=== PATIENT | female | born 1955 | race Caucasian/White ===

== ENCOUNTER → 2020-02-14 13:52 | Outpatient (CLI) | payer BC, SELFPAY ==
--- NOTE | ~2020-02-14 | MM_ITS ---
EXAMINATION: MM screening ruma BI w ulises HISTORY: Screening TECHNIQUE: Craniocaudal and mediolateral oblique 3-D tomosynthesis images were obtained and synthetic 2-D images were generated. CAD analysis was submitted and interpreted. COMPARISON: No prior mammogram is available for comparison at this institution. BREAST PARENCHYMAL COMPOSITION: There are scattered areas of fibroglandular density. FINDINGS: There is no evidence of suspicious mass, calcification, or architectural distortion to sugg est malignancy in either breast. There has been no suspicious interval change. IMPRESSION: 1. No mammographic evidence of malignancy. 2. Recommend routine screening mammography in one year. BI-RADS Category 1: Negative Reviewed, dictated and finalized at location A.
== END ==
PROVIDERS: PCP Family Medicine Adolescent Medicine; Visit Provider Family Medicine Adolescent Medicine
DX: Z12.31 Encounter for screening mammogram for malignant neoplasm of breast (principal)
CPT/HCPCS: 77063; 77067

== ENCOUNTER 2020-09-25 15:08 | Outpatient (CLI) | payer BC, SELFPAY ==
--- NOTE | ~2020-09-25 | CT_ITS ---
EXAMINATION: CT abdomen pelvis wo con DATE: 09/25/2020 15:27 INDICATION: Right lower quadrant abdominal pain, costovertebral angle tenderness. For 3 days TECHNIQUE: Computed tomography (CT) of the abdomen and pelvis was performed without intravenous contr ast. Automated exposure control and iterative reconstruction technique were employed. Exam dose: 304 .19 mGy-cm total exam DLP. COMPARISON: None. FINDINGS: There is patchy infiltrate and/or atelectasis in the lingula and right lower lobe and to l nain extent middle and left lower lobes. Right lower lobe calcified pulmonary granulomas. Heart size is within normal limits. No pericardial or pleural effusion. Small sliding hiatal hernia. The gallbladder is contracted. No pericholecystic fluid or fat stranding. No hepatic space-occupying mass lesion or bile duct dilatation. Normal splenic size. No pancreatic mass lesion, calcification or ductal dilatation. Normal morphology of the adrenal glands. No urinary tract calculus or hydroureteronephrosis is evident. The urinary bladder is evacuated and n ot optimally evaluated. The uterus and adnexal areas are unremarkable. There is atherosclerotic calcification of the abdominal aorta but no aneurysm. No intraperitoneal or retroperitoneal or pelvic mass lesion or adenopathy or ascites is evident. Normal appendix. Diverticulosis of left and right colon. No CT evidence of diverticulitis. No bowel o bstruction, bowel wall thickening, pneumatosis or intraperitoneal free air is evident. Degenerative changes of the lumbar spine, including degenerative disc disease especially L4-5 and L5- S1, grade 1 anterolisthesis at L4-5 due to degenerative change at the apophyseal joints. IMPRESSION: Normal appendix No urinary tract calculus or hydroureteronephrosis Diverticulosis of the colon; no evidence of diverticulitis Reviewed, dictated and finalized at [facility]. Reviewed, dictated and finalized at location [facility].
== END 2020-09-25 15:09 | disposition home or self-care (01) ==
PROVIDERS: PCP Family Medicine Adolescent Medicine; Visit Provider Physician Assistant
DX: R10.32 Left lower quadrant pain (principal); R10.823 Right lower quadrant rebound abdominal tenderness; K57.90 Diverticulosis of intestine, part unspecified, without perforation or abscess without bleeding
CPT/HCPCS: 74176

== ENCOUNTER → 2021-08-14 10:03 | Outpatient (CLI) | payer OTHER, SELFPAY ==
--- NOTE | ~2021-08-14 | XR_ITS ---
EXAMINATION: XR chest 2V DATE: 08/14/2021 10:28 INDICATION: Shortness of breath. TECHNIQUE: Frontal and lateral views of the chest were obtained. COMPARISON: Chest 2 views 03/21/2017, CT abdomen and pelvis 09/25/2020 FINDINGS: A calcified left lung nodule is consistent with old granulomatous disease. No pleural effus ion or pneumothorax. The heart size is normal. IMPRESSION: 1. No acute cardiopulmonary disease. Reviewed, dictated and finalized at location A.
== END ==
PROVIDERS: PCP Family Medicine Adolescent Medicine; Visit Provider Physician Assistant
DX: R06.02 Shortness of breath (principal)
CPT/HCPCS: 71046

== ENCOUNTER 2021-09-09 09:58 | Outpatient (CLI) | payer MEDICARE, SELFPAY ==
--- NOTE | 2021-09-09 12:26 | WPDPFTINT ---
PFT Procedure Performed PFT Procedure Performed Spirometry with Pre/Post Bronchodilator Plethysmography (Lung Vol) Diffusing Cap (DLCO) Flow Vol Loop PFT Interpretation This is a pulmonary function test with pre and post-bronchodilator spirometry, plethysmography and diffusing capacity. The test was performed and results interpreted in accordance with the 2019 and 2005 ATS/ERS Task Force guidelines respectively using the Global Lung Function Initiative-2012 reference equations. Patient demonstrated good effort and cooperation. Reproducibility criteria were met. The quality of the pre bronchodilator spirometry maneuver was Grade A and post bronchodilator spirometry maneuver was Grade A. Findings: Spirometry: The contour the inspiratory and expiratory flow tracing are normal. The pre bronchodilator FVC is 2.39 L, 79% predicted. The pre bronchodilator FEV1 is 1.69 L, 71% predicted. The FEV1: FVC ratio 71%. The post bronchodilator FVC is 2.47 L, representing a 3% increase. The post bronchodilator FEV1 is 1.74 L, representing a 3% increase. The post bronchodilator FEV1: FVC ratio is 70%. Plethysmography: The total lung capacity is 5.00 L, 98% predicted. The functional residual capacity is 3.17 L, 110% predicted. The residual volume is 2.58 L, 123% predicted. Diffusion capacity: The diffusing capacity unadjusted for hemoglobin and carboxyhemoglobin is 13.2, 63% predicted. The diffusing capacity adjusted for alveolar volume is 3.67, 84% predicted. Impression: The spirometry is normal without evidence of an obstructive abnormality. The lung volumes are normal without evidence of and restrictive abnormality. The FVC and FEV1 are mildly decreased without an obstructive or restrictive abnormality. This is an abnormal but nonspecific finding. There is no significant improvement after inhaling a single dose of albuterol. The diffusing capacity unadjusted for hemoglobin and carboxyhemoglobin is mildly decreased and normalizes when adjusted for alveolar volume. There are no prior studies for comparison
== END 2021-09-09 09:59 | disposition home or self-care (01) ==
PROVIDERS: PCP Family Medicine Adolescent Medicine; Visit Provider Physician Assistant
DX: R06.02 Shortness of breath (principal)
CPT/HCPCS: 94060; 94726; 94729

== ENCOUNTER 2022-03-25 00:12 | Day surgery (SDC) | payer MEDICARE, SELFPAY ==
[2022-03-12 14:53] VITALS: BMI 25.7
--- NOTE | 2022-03-24 15:02 | WPDANESEPPF ---
Anes - Initial Pre Proc Eval Procedure: Operation Date: 03/25/22 10:00 Proposed Procedures p Screening Colonoscopy - Ladarius Mayberry MD Date/Time: 03/24/22 15:02 Surgeon: Ladarius Mayberry MD Pre Op Diagnosis: Hx of colon polyps Patient Data Age: 67 Gender: F Height: 1.63 m Weight: 68 kg Allergies Allergy/AdvReac Type Severity Reaction Status Date / Time Sulfa (Sulfonamide Allergy Severe RASH Verified 03/25/22 08:47 Antibiotics) Penicillins Allergy Unknown PT STATES Verified 03/25/22 08:47 SHE DOESNT KNOW Home Medications Medication Instructions Recorded Confirmed Type iigfcimw-spk-rstg-FA-Ca carb-vit K 1 tablet PO DAILY 03/12/22 03/12/22 History 18 mg iron-400 mcg-500 mg tablet Patient hx anesthesia problems: none Family hx anesthesia problems: none Results Review: All pre-operative results and documents have been reviewed as part of the pre-operative evaluation. [facility] Past Medical History Medical History (Updated 03/18/22 @ 15:29 by Nicole Rayo PA-C) History of diverticulosis Internal hemorrhoids Surgical History Surgical History History of History of tubal ligation Hx of arthroscopy of left knee Family History Family History (Updated 08/14/21 @ 09:11 by Nolvia Pedroza MA) Mother FH: kidney cancer Carcinoma of colon Heart disease Father Dementia Social History Social History (Updated 08/14/21 @ 09:12 by Nolvia Pedroza MA) Smoking packs per day: 1 Smoking cigarettes per day: 20.0 Years smoked: 40 Smoking pack-years: 40.00 Smoking status: Current every day smoker Second hand tobacco smoke exposure: No Alcohol intake: never Substance use: never Substance use type: does not use Living arrangements: with family Gender identity (if verbalized by the patient): Female Sexual Orientation (if Verbalized by the Patient): Straight or Heterosexual Spiritual care concerns: No Agree to blood products: Yes Anes - Eval Final PreProcedure Day of Procedure 03/24/22 15:02 Patient weight: normal Heart: regular rate and rhythm Lungs: clear to auscultation and normal air movement Airway: Mallampati scale class II Neurological: alert and oriented Last oral intake: >/= 8 hours ASA classification: II Emergent: no Anesthetic plan: proceed Anesthesia type and monitoring: general GIVS Results Review: All pre-operative results and documents have been reviewed as part of the pre-operative evaluation. Informed Consent: The patient's anesthetic plan and its attendant risks and benefits were discussed with the patient/family/POA. Questions were solicited and answers provided to the satisfaction of the patient/family/POA.
[2022-03-25 08:38] VITALS: BP 139/73; PULSE 73; RESP 18; TEMP 36.6; O2SAT 99; BMI 24.7
[2022-03-25] MEDS: LACTATED RINGERS 1,000 ML 150 ML IV CONT (08:57)
--- NOTE | 2022-03-25 09:44 | PM.HPGS ---
History of Present Illness History of Present Illness Consent: Risks, benefits, and alternatives have been discussed and questions answered. Patient agrees to proceed with procedure. Chief complaint: Hx of colon polyps Narrative: Hannah Bejarano is a 67 year old female Presents for screening colonoscopy. Patient has a prior history of colon polyps in 2016 and 2008. Family history is significant her mother had colon cancer. Patient presents today for screening exam. She reports that her current weight appetite and bowel movements are normal. Patient denies abdominal pain. She has had no bleeding. Review of Systems Review of Systems: Review of systems noncontributory. [facility] [place] Past Medical History Medical History (Updated 03/25/22 @ 09:46 by Ladarius Mayberry MD) History of diverticulosis Internal hemorrhoids Surgical History Surgical History History of History of tubal ligation Hx of arthroscopy of left knee Family History Family History (Updated 08/14/21 @ 09:11 by Nolvia Pedroza MA) Mother FH: kidney cancer Carcinoma of colon Heart disease Father Dementia Social History Social History (Updated 08/14/21 @ 09:12 by Nolvia Pedroza MA) Smoking packs per day: 1 Smoking cigarettes per day: 20.0 Years smoked: 40 Smoking pack-years: 40.00 Smoking status: Current every day smoker Second hand tobacco smoke exposure: No Alcohol intake: never Substance use: never Substance use type: does not use Living arrangements: with family Gender identity (if verbalized by the patient): Female Sexual Orientation (if Verbalized by the Patient): Straight or Heterosexual Spiritual care concerns: No Agree to blood products: Yes Meds Home Medications and Allergies Home Medications Medication Instructions Recorded Confirmed Type wshpuwdz-kwc-jcyf-FA-Ca carb-vit K 1 tablet PO DAILY 03/12/22 03/25/22 History 18 mg iron-400 mcg-500 mg tablet Allergies Allergy/AdvReac Type Severity Reaction Status Date / Time Sulfa (Sulfonamide Allergy Severe RASH Verified 03/25/22 08:47 Antibiotics) Penicillins Allergy Unknown PT STATES Verified 03/25/22 08:47 SHE DOESNT KNOW Vital Signs Vital Signs - 24 hr 03/25/22 08:38 Temperature 97.8 F Pulse Rate 73 Respiratory Rate 18 Blood Pressure 139/73 Pulse Oximetry 99 Oxygen Delivery Room Air Exam Narrative: Physical exam reveals patient to be alert. Vital signs stable. HEENT exam is unremarkable. Patient is anicteric. Lungs are clear to auscultation and percussion. Heart is without murmur or extra sounds. Abdomen bowel sounds present soft nontender with no organomegaly. Digital external rectal exam is normal. Assessment and Plan Assessment and plan (1) History of colon polyps: Code(s): Z86.010 - Personal history of colonic polyps Status: Acute Assessment and Plan: Patient has a prior history of colon polyps. Most recently 2015. Additionally her mother had colon cancer. Plan for screening colonoscopy now and at 5 year intervals in the future. (2) Family history of colon cancer in mother: Code(s): Z80.0 - Family history of malignant neoplasm of digestive organs Status: Acute
[2022-03-25 10:26] VITALS: BP 117/75; PULSE 67; RESP 19; O2SAT 100
[2022-03-25 10:36] VITALS: BP 124/70; PULSE 68; RESP 21; O2SAT 100
[2022-03-25 10:45] VITALS: BP 134/85; PULSE 63; RESP 22; O2SAT 100
== END 2022-03-25 10:50 | disposition home or self-care (01) ==
PROVIDERS: PCP Family Medicine Adolescent Medicine; Visit Provider Internal Medicine Gastroenterology
PROC: 0DJD8ZZ Inspection of Lower Intestinal Tract, Via Natural or Artificial Opening Endoscopic (ICD-10-PCS; CPT 45378; principal; 2022-03-25 10:00)
DX: Z12.11 Encounter for screening for malignant neoplasm of colon (principal); D12.2 Benign neoplasm of ascending colon; K63.5 Polyp of colon; K57.30 Diverticulosis of large intestine without perforation or abscess without bleeding; K64.8 Other hemorrhoids; Z80.0 Family history of malignant neoplasm of digestive organs; F17.210 Nicotine dependence, cigarettes, uncomplicated
CPT/HCPCS: 45385; 88305; J2704; J7120

== ENCOUNTER 2022-05-07 08:04 | Outpatient (CLI) | payer MEDICARE, SELFPAY ==
--- NOTE | ~2022-05-07 | CT_ITS ---
Clinical Indication: Dyspnea on exertion CT Scan of the Chest with Contrast: Technique: Contiguous sections were acquired throughout the chest after intravenous administration of 100 cc of Omnipaque 350. Dose reduction technique was used on this scan by utilizing automated expos ure control and iterative reconstruction technique. The dose-length product (DLP) was 226.09 mGy-cm. Findings: There is no evidence of any significant mediastinal, hilar or axillary lymphadenopathy. There is no f illing defect in the pulmonary arterial tree to suggest pulmonary embolus. There is no evidence of ao rtic dissection or aneurysm. There is no evidence of pleural or pericardial effusion. There is mild lingular scarring. Calcified granulomas noted. Images through the upper abdomen reveal no abnormalities. Impression: No evidence of pulmonary embolus, aortic dissection, or aortic aneurysm. No significant pulmonary abnormality seen. Reviewed, dictated and finalized at [facility]. [employer]OR Impression: No evidence of pulmonary embolus, aortic dissection, or aortic aneurysm. No significant pulmonary abnormality seen.
[2022-05-07 09:46] LABS: Estimated Glomerular Filt Rate 55
--- NOTE | 2022-05-07 13:03 | WPDSIXMINUTE ---
Six Minute Walk Procedure Procedure Performed Pulmonary Stress Test (6 min walk) Six Minute Walk Six Minute Walk: this 6 minute walk test was carried out with the patient breathing ambient air. The pre-walk oxyhemoglobin saturation was 93%. The patient walked over 426 m with no stops during testing. During the walk, the oxyhemoglobin saturation remained 89% or higher. The perceived dyspnea on the Xavier scale at baseline was 0 and increased to 5 at the end of testing. Impression: No evidence of clinically significant oxyhemoglobin desaturation on this testing.
== END 2022-05-07 08:05 | disposition home or self-care (01) ==
PROVIDERS: PCP Family Medicine Adolescent Medicine; Visit Provider Internal Medicine Pulmonary Disease
DX: R06.09 Other forms of dyspnea (principal); J40 Bronchitis, not specified as acute or chronic; Z72.0 Tobacco use
CPT/HCPCS: 71275; 94618; Q9967

== ENCOUNTER → 2022-07-21 13:35 | Outpatient (CLI) | payer MEDICARE, SELFPAY ==
--- NOTE | ~2022-07-21 | MM_ITS ---
EXAMINATION: MM screening ruma BI w ulises HISTORY: Screening mammogram TECHNIQUE: Craniocaudal and mediolateral oblique 3-D tomosynthesis images were obtained and synthetic 2-D images were generated. CAD analysis was submitted and interpreted. COMPARISON: 02/24/2020 bilateral screening mammogram BREAST PARENCHYMAL COMPOSITION: There are scattered areas of fibroglandular density. FINDINGS: There is no evidence of suspicious mass, calcification, or architectural distortion to sugg est malignancy in either breast. There has been no suspicious interval change. IMPRESSION: 1. No mammographic evidence of malignancy. 2. Recommend routine screening mammography in one year. BI-RADS Category 1: Negative Reviewed, dictated and finalized at location A.
--- NOTE | ~2022-07-21 | DEXA_ITS ---
Bone Density Report Name: LUKE CHRISTOPHER Age: 67 Sex: Female Ethnicity: White Date of : 1955 Indication: postmenopausal; screening for osteoporosis; height loss; Referring Provider: MICHELLE SPENCER Study: Bone densitometry was performed. Exam Date: July 21, 2022 Accession number: [id number] Bone Density: Region BMD T-score Z-score Classification AP Spine (L1-L4) 0.900 -1.3 0.5 Osteopenia Femoral Neck (Left) 0.569 -2.5 -0.9 Osteoporosis Total Hip (Left) 0.724 -1.8 -0.5 Osteopenia Femoral Neck (Right) 0.548 -2.7 -1.1 Osteoporosis Total Hip (Right) 0.740 -1.7 -0.4 Osteopenia Total Hip Mean 0.732 -1.8 -0.5 Osteopenia World Health Organization criteria for BMD impression classify patients as: Normal (T-score at or above -1.0), Osteopenia (T-score between -1.0 and -2.5), or Osteoporosis (T-score at or below -2.5). 10-year Fracture Risk: FRAX not reported because: Some T-score for Spine Total or Hip Total or Femoral Neck at or below -2.5 Clinical Information Provided by Patient: Smokes Patient maximum height was 64 Menopause Age: 53 Drinks caffeinated beverages Onset of menses at age 13 Number of children 3 Impression: The patient has osteoporosis, based on the Right Femoral Neck T-score. The patient has risk factors, including: smoking. Discussion: INCREASED RISK OF FRACTURE. BONE DENSITY IS UNDESIRABLY LOW AT ONE OR MORE SKELETAL SITES, CONSISTENT WITH POSTMENOPAUSAL OSTEOPOROSIS. This patient's lowest T-score meets the World Health Organization's (WHO) criteria for osteoporosis at one or more sites (T-score -2.5 or below). In untreated patients, the risk of osteoporotic fracture increases approximately two-fold for each 1.0 SD decrease in T-score. Low bone density is not the only risk factor for fracture; also consider factors such as patient's age, frailty or poor health, risk of falling, risk of injury, previous osteoporotic fracture, family history of osteoporosis, cigarette smoking, low body weight, etc. Not everyone with low bone mineral density has osteoporosis; osteomalacia and other metabolic bone disorders should also be considered. Patients who have osteoporosis should be evaluated for specific diseases and conditions (secondary causes) that may cause or contribute to bone loss. The [place] [employer]ocrinologists (AACE) and National Osteoporosis Foundation (NOF) recommend pharmacologic intervention for all postmenopausal women whose T-score is in this range. The patient should follow a healthful lifestyle (good nutrition with adequate calcium and vitamin D, and appropriate weight-bearing exercise). Follow-Up: Consider a repeat BMD and Vertebral Fracture Assessment (VFA) exam in 2 years or sooner if medically necessary, to reassess this patient's status. Report
== END ==
PROVIDERS: PCP Family Medicine Adolescent Medicine; Visit Provider Physician Assistant
DX: Z12.31 Encounter for screening mammogram for malignant neoplasm of breast (principal); Z78.0 Asymptomatic menopausal state; M85.89 Other specified disorders of bone density and structure, multiple sites; M81.0 Age-related osteoporosis without current pathological fracture
CPT/HCPCS: 77063; 77067; 77080

== ENCOUNTER 2024-05-04 14:18 | Outpatient (CLI) | payer MEDICARE, SELFPAY ==
--- NOTE | ~2024-05-04 | CT_ITS ---
EXAMINATION: CT lung screening DATE: 05/04/2024 14:31 INDICATION: F17.210 - Nicotine dependence, cigarettes, uncomplicated TECHNIQUE: Computed tomography (CT) of the chest was performed without intravenous contrast. Addition al 3D reconstructions utilizing coronal maximum intensity projection (MIP) were performed. Automated exposure control and iterative reconstruction technique were employed. The dose-length product was 61 .87 mGy-cm. COMPARISON: Chest CT dated 05/07/2022 FINDINGS: Mild emphysema. There are calcified nodules at the right upper lobe, right lower lobe and lingula con sistent with old granulomatous disease. This also linear discoid atelectasis at the lingula. No inter kathie change in a 8 x 6 mm pleural-based nodule at the lateral basilar right lower lobe. No other new o r enlarging pulmonary nodules identified. No pneumonia, pulmonary edema or pleural effusion. Heart si ze is normal. No pericardial effusion. Thoracic aorta is normal in caliber. No pathologically enlarge d abdominal or pelvic lymphadenopathy. Visualized upper abdomen is unremarkable. Mild thoracic spondy losis. IMPRESSION: 1. Lung-RADS category 2: Benign appearance or behavior. Continue annual screening with noncontrast lo w-dose chest CT in 12 months. Reviewed, dictated and finalized at location A. EL OT IMPRESSION: 1. Lung-RADS category 2: Benign appearance or behavior. Continue annual screeni ng with noncontrast low-dose chest CT in 12 months.
== END 2024-05-04 14:19 | disposition home or self-care (01) ==
LOC: MICIMG 14:19
PROVIDERS: PCP Family Medicine Adolescent Medicine; Visit Provider Family Medicine
DX: Z12.2 Encounter for screening for malignant neoplasm of respiratory organs (principal); Z87.891 Personal history of nicotine dependence
CPT/HCPCS: 71271

== ENCOUNTER 2024-07-11 10:48 | Outpatient (CLI) | payer MEDICARE, SELFPAY ==
--- NOTE | ~2024-07-11 | MM_ITS ---
EXAMINATION: MM screening ruma BI w ulises HISTORY: Screening mammogram TECHNIQUE: Craniocaudal and mediolateral oblique 3-D tomosynthesis images were obtained and synthetic 2-D images were generated. CAD analysis was submitted and interpreted. COMPARISON: 07/21/2022, 02/14/2020 BREAST PARENCHYMAL COMPOSITION:Not Dense. The breasts are almost entirely fatty FINDINGS: No suspicious mass, calcification, or architectural distortion are identified in either [place] ast to suggest malignancy. There has been no suspicious interval change. IMPRESSION: No mammographic evidence of malignancy. Recommend routine screening mammography in one year. BI-RADS Category 1: Negative Reviewed, dictated and finalized at location . N ATTENDANT
== END 2024-07-11 10:49 | disposition home or self-care (01) ==
PROVIDERS: PCP Family Medicine Adolescent Medicine; Visit Provider Family Medicine
DX: Z12.31 Encounter for screening mammogram for malignant neoplasm of breast (principal)
CPT/HCPCS: 77063; 77067